=== PATIENT | male | born 1985 | race Caucasian/White ===

== ENCOUNTER 2018-11-07 13:57 | Emergency (ER) | payer OTHER ==
[~2018-11-07] VITALS: Ht 167.6 cm; Wt 89.8 kg
[2018-11-07 14:06] VITALS: Ht 167.6 cm; Wt 89.8 kg
[2018-11-07 16:21] VITALS: BP 132/80
== END 2018-11-07 16:21 | disposition home or self-care (01) ==
LOC: ED 13:57
DX: G43.809 Other migraine, not intractable, without status migrainosus (principal); J45.909 Unspecified asthma, uncomplicated; I10 Essential (primary) hypertension
CPT/HCPCS: J1885; J2765